=== PATIENT | male | born 1965 | race Caucasian/White ===

== ENCOUNTER → 2018-04-27 | Outpatient (CLI) | payer OTHER ==
--- NOTE | 2018-04-27 14:11 | Diagnostic Imaging Report ---
EXAM: CT Chest without contrast INDICATION: Abnormal chest X ray with opacity in the left upper lobe. COMPARISON: None TECHNIQUE: Chest was scanned utilizing a multidetector helical scanner from the lung apex through the level of the adrenal glands without administration of IV contrast. Coronal and sagittal reformations were obtained. Routine protocol was performed. Dose modulation, iterative reconstruction, and/or weight based adjustment of the mA/kV was utilized to reduce the radiation dose to as low as reasonably achievable. RADIATION DOSE: Total DLP: 575.4 mGy*cm COMPLICATIONS: None FINDINGS: LINES/ TUBES: None. LUNGS AND AIRWAYS: The central airways are patent. Minimal biapical pleural-parenchymal opacity. PLEURA: The pleural spaces are clear. HEART AND MEDIASTINUM: The thyroid gland is normal. No mediastinal, hilar or axillary lymphadenopathy. No cardiomegaly or pericardial effusion. Minimal aortic atherosclerosis. Scattered coronary atherosclerosis. UPPER ABDOMEN: Limited non-contrast views of the upper abdomen show no abnormality within the visualized liver or spleen. BONES AND SOFT TISSUES: No acute osseous abdomen. No suspicious lytic or blastic lesions. No degenerative changes of the spine. IMPRESSION: No acute radiographic abnormality. No CT correlate to reported opacity in left upper lobe from prior outside hospital chest radiograph. Signed by: Dr. Jae Cain MD on 04/27/2018 2:08 PM
== END ==
LOC: CT 12:49
PROVIDERS: ATTEND Family Medicine
DX: R91.8 Other nonspecific abnormal finding of lung field (principal)
CPT/HCPCS: 71250